=== PATIENT | male | born 1980 | race Caucasian/White ===

== ENCOUNTER 2020-05-30 17:57 | Emergency (ER) | payer OTHER ==
[~2020-05-30] VITALS: Ht 195.6 cm; Wt 126.3 kg
[~2020-05-30 17:57] MED LIST: A/B OTIC AU; ACYCLOVIR800 MG PO; ALLERGY10 M1 PO; AMOXICILLIN500 MG PO; AMOXICILLIN875 MG PO; AUGMENTIN875TAB PO; CEPHALEXIN500 MG OR; FAMCICLOVIR500 MG PO; FLEXERIL OR; FLEXERIL PO; FLONASE NASAL50 MCG; HYDROCHLOROT12.5 MG PO; KEFLEX500 M1 PO; KEFLEX500 MG PO; LORTAB 5/3255 MG PO; NAPROSYN500 MG OR; NAPROSYN500 MG PO; NEOMYCIN/POLYMYXIN/G AS; NEXIUM40 M1 OR; NO MEDS; ONDANSETRON4 MG OR; PRILOSEC40 MG PO; SILVADENE1 % TOP; ULTRAM50 M1 OR; ULTRAM50 M1 PO; [UNRECOGNIZED DRUG - OTHER] AD
[2020-05-30] MEDS ORDERED: ZESTRIL10 M1 PO (18:15)
[2020-05-30] MEDS ORDERED: PAXIL40 MG PO (18:15)
[2020-05-30] MEDS ORDERED: CLARITIN10 M1 PO (18:16)
[2020-05-30] MEDS ORDERED: NEXIUM20 M1 PO (18:16)
[2020-05-30] MEDS ORDERED: BACLOFEN20 MG PO (18:16)
[2020-05-30] MEDS ORDERED: CEPHALEXIN500 M1 PO (19:18)
[2020-05-30 19:30] VITALS: BP 128/80
== END 2020-05-30 19:33 | disposition home or self-care (01) | DRG 914 ==
LOC: ED 17:57
PROC: 0HQGXZZ Repair Left Hand Skin, External Approach (ICD-10-PCS; principal; 2020-05-30)
PROC: 0HQ1XZZ Repair Face Skin, External Approach (ICD-10-PCS; 2020-05-30)
DX: S61.221A Laceration with foreign body of left index finger without damage to nail, initial encounter (principal); S01.511A Laceration without foreign body of lip, initial encounter; I10 Essential (primary) hypertension; F17.210 Nicotine dependence, cigarettes, uncomplicated; W31.1XXA Contact with metalworking machines, initial encounter; Y93.89 Activity, other specified; Y92.89 Other specified places as the place of occurrence of the external cause; Y99.0 Civilian activity done for income or pay

== ENCOUNTER 2020-06-18 13:58 | Emergency (ER) | payer SELFPAY ==
[~2020-06-18] VITALS: Ht 195.6 cm; Wt 125.0 kg
[~2020-06-18 13:58] MED LIST changes: +BACLOFEN20 MG PO; +CEPHALEXIN500 M1 PO; +CLARITIN10 M1 PO; +NEXIUM20 M1 PO; +PAXIL40 MG PO; +ZESTRIL10 M1 PO
[2020-06-18] MEDS ORDERED: NEXIUM40 M1 PO (14:11)
[2020-06-18] MEDS ORDERED: KEFLEX500 M1 PO (14:27)
[2020-06-18 14:30] VITALS: BP 153/67
== END 2020-06-18 14:37 | disposition home or self-care (01) | DRG 607 ==
LOC: ED 13:58
DX: L73.9 Follicular disorder, unspecified (principal); I10 Essential (primary) hypertension; F17.220 Nicotine dependence, chewing tobacco, uncomplicated

== ENCOUNTER 2022-10-20 11:35 | Emergency (ER) | payer SELFPAY ==
[~2022-10-20] VITALS: Ht 195.6 cm; Wt 101.0 kg
[~2022-10-20 11:35] MED LIST changes: +NEXIUM40 M1 PO
[2022-10-20] MEDS ORDERED: CEPHALEXIN500 MG PO (12:37)
[2022-10-20 12:46] VITALS: BP 134/71
== END 2022-10-20 12:51 | disposition home or self-care (01) | DRG 605 ==
LOC: ED 11:35
DX: S61.210A Laceration without foreign body of right index finger without damage to nail, initial encounter (principal); W26.0XXA Contact with knife, initial encounter